=== PATIENT | female | born 1985 | race Caucasian/White ===

== ENCOUNTER 2019-12-26 03:55 | Emergency (ER) | payer MEDICAID ==
[2019-12-26 04:16] VITALS: BP 141/82; O2SAT 99
[2019-12-26 04:27] LABS: Absolute Neutrophil Ct (ANC) 9.65 (1.4-6.9); BASOPHIL % 0.4 % (0.0-0.4); Basophil (Absolute #) 0.06 (0-0.4); Eosinophil % 2.8 % (0.00-5.0); Eosinophil (Absolute #) 0.39 (0-0.5); Hematocrit 42.5 % (35-47); Hemoglobin 14.4 gm/dl (12.0-16.0); Lymphocyte (Absolute #) 2.89 (1.0-4.6); Lymphocytes % 20.5 % (24.0-44.0); Mean Cell Volume 92.6 fl (78-100); Mean Corpuscular Hemoglobin 31.4 pg (26-32); Mean Corpuscular Hgb Concent. 33.9 g/dl (32-36); Mean Platelet Volume 10.7 fl (7.5-11.0); Monocytes % 7.8 % (0.0-12.0); Neutrophil % 68.5 % (36.0-66.0); Platelet Count 251 K/mm3 (150-450); Red Blood Count 4.59 M/mm3 (4.1-5.4); Red Cell Distribution Width 13.1 % (11.5-14.0); White Blood Count 14.1 K/mm3 (4.0-10.5)
[2019-12-26 05:03] LABS: ALBUMIN 3.9 g/dL (3.5-5.0); ALKALINE PHOSPHATASE 71 U/L (38-126); ANION GAP 10.8 MEQ/L (5-15); BLOOD UREA NITROGEN 10 mg/dL (7-17); CHLORIDE 109 mmol/L (98-107); Calcium 9.5 mg/dL (8.4-10.2); Carbon Dioxide 21 mmol/L (22-30); Creatinine 1 0.53 mg/dL (0.52-1.04); Glucose 124 mg/dL (74-106); Potassium 3.7 mmol/L (3.5-5.1); SGOT/AST 18 U/L (14-36); SGPT/ALT 18 U/L (0-35); SODIUM 137 mmol/L (137-145); Total Protein 6.8 g/dL (6.3-8.2)
--- NOTE | 2019-12-26 05:03 | ERPHSYRPT ---
- History of Present Illness Time Seen by Provider: 12/26/19 04:10 Source: patient, family Exam Limitations: no limitations Patient Subjective Stated Complaint: pt reports "light period bleeding" after intercourse; pt reports blood on toilet paper after using restroom immediately after intercourse; pt also reports using restroom upon arrival to ED and did not note any bleeding Triage Nursing Assessment: a/ox4; resp non labored and regular; skin p/w/d; ambualtes without difficulty Physician History: This is a 34-year-old white female who is approximately 8-1/2 weeks and presents with vaginal bleeding that occurred after sexual intercourse early this morning. She is not felt any pain. She describes the pain is more of a light menstrual period. She has had no urinary symptoms. She has no abdominal pain. This is her second . Patient has an appointment to see an wholesale buyer tomorrow, 12/27/2019. She was scheduled to have an ultrasound tomorrow. Timing/Duration: today Activites at Onset: sexual activity Quality: other (None) Pain Radiation: vaginal (Bleeding) Severity of Pain-Max: none Severity of Pain-Current: none Prior abdominal problems: none Sexual intercourse history: single partner, other (Vaginal bleeding occurred after sexual intercourse) Associated Symptoms: vaginal discharge, No abdominal pain, No nausea, No vomiting, No dysuria Hx Tetanus, Diphtheria Vaccination/Date Given: No Hx Influenza Vaccination/Date Given: No Hx Pneumococcal Vaccination/Date Given: No Travel Risk - International Travel Have you traveled outside of the country in past 3 weeks: No - Coronavirus Screening Are you exhibiting any of the following symptoms?: No Close contact with a COVID-19 positive Pt in past 14-21 Days: No - Review of Systems Constitutional: No Symptoms Eyes: No Symptoms Ears, Nose, & Throat: No Symptoms Respiratory: No Symptoms Cardiac: No Symptoms Abdominal/Gastrointestinal: No Symptoms Genitourinary Symptoms: Vaginal Bleeding (After this morning's sexual intercourse) Musculoskeletal: No Symptoms Skin: No Symptoms Neurological: No Symptoms Psychological: No Symptoms Endocrine: No Symptoms Hematologic/Lymphatic: No Symptoms Immunological/Allergic: No Symptoms All Other Systems: Reviewed and Negative - Past Medical History Pertinent Past Medical History: No Neurological History: No Pertinent History ENT History: No Pertinent History Cardiac History: No Pertinent History Respiratory History: No Pertinent History Endocrine Medical History: No Pertinent History Musculoskeletal History: No Pertinent History GI Medical History: No Pertinent History History: No Pertinent History Psycho-Social History: No Pertinent History Female Reproductive Disorders: No Pertinent History - Past Surgical History Neuro Surgical History: No Pertinent History Cardiac: No Pertinent History Respiratory: No Pertinent History Gastrointestinal: No Pertinent History Genitourinary: No Pertinent History Musculoskeletal: No Pertinent History Female Surgical History: Other Other Surgical History: - Social History Smoking Status: Current every day smoker Exposure to second hand smoke: Yes Drug Use: none Patient Lives Alone: No - Female History Hx Now: Yes Gestational Age: 8.5 weeks - Nursing Vital Signs Nursing Vital Signs: Initial Vital Signs Temperature 98.4 F 12/26/19 04:04 Pulse Rate 94 H 12/26/19 04:04 Respiratory Rate 18 12/26/19 04:04 Blood Pressure 141/82 12/26/19 04:04 O2 Sat by Pulse Oximetry 99 12/26/19 04:04 Pain Scale Pain Intensity 0 - Physical Exam General Appearance: no apparent distress, alert, anxiety Eye Exam: PERRL/EOMI, eyes nml inspection Ears, Nose, Throat Exam: normal ENT inspection, moist mucous membranes Neck Exam: normal inspection, non-tender, supple, full range of motion Respiratory Exam: normal breath sounds, lungs clear, No chest tenderness, No respiratory distress, No airway intact Cardiovascular Exam: regular rate/rhythm, normal heart sounds, normal peripheral pulses Gastrointestinal/Abdomen Exam: soft, normal bowel sounds, No tenderness, No guarding Pelvic Exam: not done Rectal Exam: not done Back Exam: normal inspection, normal range of motion, No CVA tenderness, No vertebral tenderness Extremity Exam: normal inspection, normal range of motion, pelvis stable Neurologic Exam: alert, oriented x 3, cooperative, 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 II-XII nml as tested, normal mood/affect, nml cerebellar function, nml station & gait, sensation nml Skin Exam: normal color, warm, dry Lymphatic Exam: No adenopathy SpO2 Interpretation: normal SpO2: 99 O2 Delivery: Room Air - Course Nursing assessment & vital signs reviewed: Yes Ordered Tests: Active Orders 24 hr Category Date Time Status IV Insertion STAT Care 12/26/19 04:09 Active CBC W DIFF Stat Lab 12/26/19 04:22 Completed CMP Stat Lab 12/26/19 04:22 Completed HCG, Quantitative (Inhouse) Stat Lab 12/26/19 04:22 Completed UA W/RFX UR CULTURE Stat Lab 12/26/19 04:37 Completed Lab/Rad Data: Laboratory Result Diagrams 12/26/19 04:22 12/26/19 04:22 Laboratory Results 12/26/19 12/26/19 12/26/19 Range/Units 04:37 04:22 04:22 WBC 14.1 H (4.0-10.5) K/mm3 RBC 4.59 (4.1-5.4) M/mm3 Hgb 14.4 (12.0-16.0) gm/dl Hct 42.5 (35-47) % MCV 92.6 (78-100) fl MCH 31.4 (26-32) pg MCHC 33.9 (32-36) g/dl RDW 13.1 (11.5-14.0) % Plt Count 251 (150-450) K/mm3 MPV 10.7 (7.5-11.0) fl Gran % 68.5 H (36.0-66.0) % Eos # (Auto) 0.39 (0-0.5) Absolute Lymphs (auto) 2.89 (1.0-4.6) Absolute Monos (auto) 1.10 (0.0-1.3) Lymphocytes % 20.5 L (24.0-44.0) % Monocytes % 7.8 (0.0-12.0) % Eosinophils % 2.8 (0.00-5.0) % Basophils % 0.4 (0.0-0.4) % Absolute Granulocytes 9.65 H (1.4-6.9) Basophils # 0.06 (0-0.4) Sodium 137 (137-145) mmol/L Potassium 3.7 (3.5-5.1) mmol/L Chloride 109 H (98-107) mmol/L Carbon Dioxide 21 L (22-30) mmol/L Anion Gap 10.8 (5-15) MEQ/L BUN 10 (7-17) mg/dL Creatinine 0.53 (0.52-1.04) mg/dL Estimated GFR > 60.0 ML/MIN Glucose 124 H (74-106) mg/dL Calcium 9.5 (8.4-10.2) mg/dL Total Bilirubin 0.30 (0.2-1.3) mg/dL AST 18 (14-36) U/L ALT 18 (0-35) U/L Alkaline Phosphatase 71 (38-126) U/L Serum Total Protein 6.8 (6.3-8.2) g/dL Albumin 3.9 (3.5-5.0) g/dL Beta HCG, Quant 98748 mIU/ml Urine Color COLORLESS (YELLOW) Urine Appearance CLEAR (CLEAR) Urine pH 6.0 (5-6) Ur Specific [place] 1.001 (1.005-1.025) Urine Protein NEGATIVE (Negative) Urine Ketones NEGATIVE (NEGATIVE) Urine Blood MODERATE (0-5) Leandro/ul Urine Nitrite NEGATIVE (NEGATIVE) Urine Bilirubin NEGATIVE (NEGATIVE) Urine Urobilinogen NEGATIVE (0-1) mg/dL Ur Leukocyte Esterase NEGATIVE (NEGATIVE) Urine WBC (Auto) NONE (0-5) /HPF Urine RBC (Auto) NONE SEEN (0-2) /HPF U Epithel Cells (Auto) NONE (FEW) /HPF Urine Bacteria (Auto) NONE SEEN (NEGATIVE) /HPF Urine Culture Reflexed NO (NO) Urine Glucose NEGATIVE (NEGATIVE) mg/dL - Progress Progress: unchanged Air Movement: good Progress Note: 12/26/19 05:38 Patient has no further vaginal bleeding. She has been to the restroom twice and there is been no bleeding. She has no abdominal pain. Her numbers fit her gestational age. I offered her to stay in the emergency department and undergo a less than 14-week OB ultrasound at 7:00 this morning. If she wanted to go home and have her for less than 14 weeks OB ultrasound today after 12:00 noon I could make arrangements for that. The patient spoke with her and they a re considering foregoing the OB ultrasound today and keep there OB ultrasound appointment they have for tomorrow, 12/27/2019, at her wholesale buyer's office. 12/26/19 05:43 The patient and her had a discussion and they want to be discharged to home and will follow-up tomorrow with her OB and have the ultrasound performed then. Blood Culture(s) Obtained: No Antibiotics given: No Counseled pt/family regarding: lab results, diagnosis, need for follow-up - Departure Departure Disposition: Home Clinical Impression: Vaginal bleeding in patient after first trimester Condition: Stable Critical Care Time: No Referrals: DOCTOR,NO FAMILY [Primary Care Provider] -
[2019-12-26 05:07] LABS: Appearance CLEAR (CLEAR); Bilirubin NEGATIVE (NEGATIVE); Blood MODERATE Ery/ul (0-5); Glucose NEGATIVE (NEGATIVE); Ketones NEGATIVE (NEGATIVE); Leukocyte Esterase NEGATIVE (NEGATIVE); Nitrite NEGATIVE (NEGATIVE); Protein,Urine Dip NEGATIVE (Negative); Specific Gravity 1.001 (1.005-1.025); Urobilinogen NEGATIVE mg/dL (0-1)
[2019-12-26 05:12] LABS: Bacteria NONE SEEN /HPF (NEGATIVE); RBC NONE SEEN /HPF (0-2)
[2019-12-26 05:28] LABS: HCG, Quantitative (Inhouse) 65326 mIU/ml
[2019-12-26 05:46] VITALS: PULSE 71
== END 2019-12-26 05:55 | disposition home or self-care (01) ==
LOC: ED 03:55
DX: O20.9 Hemorrhage in early pregnancy, unspecified (principal)
CPT/HCPCS: 36000; 36415; 80053; 81001; 84702; 85025; 99284

== ENCOUNTER 2020-07-02 23:17 | Observation (INO) | payer MEDICAID, OTHER ==
[2020-07-02 23:53] LABS: Amphetamine,Urine NEGATIVE (NEGATIVE); Barbiturate,Urine NEGATIVE (NEGATIVE); Benzodiazepine,Urine NEGATIVE (NEGATIVE); Cocaine,Urine NEGATIVE (NEGATIVE); Methadone,Urine NEGATIVE (NEGATIVE); Opiate,Urine NEGATIVE (NEGATIVE); PCP,Urine NEGATIVE (NEGATIVE); THC,Urine NEGATIVE (NEGATIVE)
[2020-07-03 00:01] LABS: Appearance CLOUDY (CLEAR); Bilirubin NEGATIVE (NEGATIVE); Blood NEGATIVE Ery/ul (0-5); Epithelial Cells MODERATE /HPF (FEW); Glucose NEGATIVE (NEGATIVE); Ketones SMALL (NEGATIVE); Leukocyte Esterase TRACE (NEGATIVE); Mucus SLIGHT /HPF (NEGATIVE); Nitrite NEGATIVE (NEGATIVE); Protein,Urine Dip NEGATIVE (Negative); Specific Gravity 1.018 (1.005-1.025); Urobilinogen 2 mg/dL (0-1); WBC 0-2 /HPF (0-5)
[2020-07-03] MEDS: Lactated Ringers 1,000 ML IV ONE ×2 (00:47→02:47)
[2020-07-03] MEDS ORDERED: Lactated Ringers 1,000 ML IV SCH (01:00)
[2020-07-03] MEDS ORDERED: Lactated Ringers 1,000 ML IV ONE (02:44)
[2020-07-03 05:25] VITALS: PULSE 72; O2SAT 98
--- NOTE | 2020-07-03 09:26 | XRAY ---
Indication: Abdomen pain. History abruption. 2-dimensional OB ultrasound performed. Comparison: None There is a single viable intrauterine in cephalic presentation. heart rate 127 BPM. Posterior placenta without abnormal retroplacental fluid. BPD measures 9.00 cm corresponding to 36 weeks 3 days. HC measures 32.52 cm corresponding to 36 weeks 6 days. AC measures 32.89 cm corresponding to 36 weeks 6 days. [place] measures 7.01 cm corresponding to 36 weeks 0 days. [place] is 11.4 cm. Impression: Single viable intrauterine with mean gestational age 36 weeks 4 days. Expected date confinement is July 27, 2020. Nothing acute.
[2020-07-03 10:18] VITALS: BP 110/66
== END 2020-07-03 10:15 | disposition home or self-care (01) ==
LOC: OB 23:17
PROVIDERS: ADMIT Family Medicine; ATTEND Family Medicine
DX: O26.893 Other specified pregnancy related conditions, third trimester (principal); Z3A.36 36 weeks gestation of pregnancy; R10.9 Unspecified abdominal pain
CPT/HCPCS: 76805; 80307; 81001; G0378